=== PATIENT | female | born 1995 | race Caucasian/White ===

== ENCOUNTER 2016-09-12 01:43 | Outpatient (CLI) | payer BC ==
[2016-09-12] MEDS ORDERED: NORMAL SALINE 10 ML SYRINGE FLUSH IVP PRN (01:46)
[2016-09-12 02:05] LABS: AMPHETAMINE SCREEN NEGATIVE (NEG); CANNABINOID SCREEN,URINE NEGATIVE (NEG); COCAINE SCREEN NEGATIVE (NEG); METHADONE URINE SCREEN NEGATIVE (NEG); METHAMPHETAMINES SCREEN,URINE NEGATIVE (NEG); OPIATE SCREEN,URINE NEGATIVE (NEG); TRICYCLIC ANTIDEPRESSANT,URINE NEGATIVE (NEG); URINE SAMPLE TYPE CLEAN CATCH URINE; URINE SPECIFIC GRAVITY - MAN 1.027
[2016-09-12 02:19] VITALS: RESP 20; TEMP 97.8
--- NOTE | 2016-09-15 15:41 | PDOC(PROG) ---
Intake - - Reason for Visit/Chief Complaint: Contractions Admitted From: Home - LMP: 01/04/2016 Estimated Due Date: 10/10/16 Gestational Age in Weeks and Days: 36 Weeks and 3 Days : 1 - Labs Blood Type and Rh: A+ Group B Strep: Unknown Hepatitis B Surface Antigen: Absent HIV: Negative Rubella Status: Immune VDRL/RPR: Absent Maternal - Vital Signs Last Taken Vital Signs: Vital Signs - Last Taken Temperature 97.8 F 09/12/16 01:46 Pulse Rate 73 09/12/16 01:46 Respiratory Rate 20 09/12/16 01:46 Blood Pressure 115/64 09/12/16 01:46 Pulse Ox 98 09/12/16 01:46 - Uterine Activity Uterine Contraction Monitor Mode: External Contraction Frequency(minutes): 6 Contraction Duration (seconds): 50-70 Uterine Contraction Pattern: Irregular Uterine Tone Measurement Phase: Resting - Vaginal Discharge Vaginal Bleeding Amount: None Vaginal Discharge Amount: Small Vaginal Discharge Description: Watery Monitoring - Uterine Activity Uterine Contraction Monitor Mode: External Contraction Frequency(minutes): 6 Contraction Duration (seconds): 50-70 Uterine Contraction Pattern: Irregular Uterine Tone Measurement Phase: Resting Results - Bedside Testing Bedside Urine Ketone: Negative Bedside Urine Leukocytes Esterase: Moderate Bedside Urine Nitrite: Negative Bedside Urine Occult Blood: Large Bedside Urine Protein: Trace Bedside Specific [place]: 1.030 Assessment and Plan - Assessment / Plan Additional Assessment/Plan Details: No evidence of PTL. Reassuring maternal and evaluation. Discharge to home in good condition. - Time Time Spent With Patient: Less Than 15 Minutes
== END 2016-09-12 02:17 | disposition home or self-care (01) ==
LOC: OBOP 01:43
PROVIDERS: ATTEND Obstetrics & Gynecology
DX: O47.03 False labor before 37 completed weeks of gestation, third trimester (principal); Z3A.36 36 weeks gestation of pregnancy
CPT/HCPCS: 59025; 80305; 81003; 99211